=== PATIENT | male | born 1950 | race Caucasian/White ===

== ENCOUNTER 2017-08-24 09:02 | Outpatient (CLI) | payer OTHER ==
[~2017-08-24 09:02] MED LIST: CIALIS2.5 MG PO; IBUPROFEN800 MG PO; NEURONTIN300 MG PO; PERCOCET 5/3251 TAB PO; POLY119PG PO; PROTONIX40 M1 PO
== END 2017-08-24 13:21 | disposition home or self-care (01) ==
LOC: RAD 09:02 → MRI 09:02
DX: M25.511 Pain in right shoulder (principal)
CPT/HCPCS: 73221

== ENCOUNTER 2018-07-25 13:20 | Outpatient (CLI) | payer OTHER | END 2018-07-25 15:48 | disposition home or self-care (01) | LOC: MRI 13:20 | DX: G25.0 Essential tremor (principal) | CPT/HCPCS: 70551 ==

== ENCOUNTER → 2020-04-16 | Outpatient (CLI) | payer OTHER | END | disposition home or self-care (01) | LOC: PPH VACUNA | PROVIDERS: ATTEND Emergency Medicine Pediatric Emergency Medicine | DX: Z23 Encounter for immunization (principal) ==

== ENCOUNTER 2021-02-12 10:16 | Outpatient (CLI) | payer OTHER | END 2021-02-16 15:48 | disposition home or self-care (01) | LOC: MRI 10:16 | DX: M25.511 Pain in right shoulder (principal) | CPT/HCPCS: 73221 ==

== ENCOUNTER 2023-09-21 11:08 | Outpatient (CLI) | payer OTHER | END 2023-09-21 12:00 | disposition home or self-care (01) | LOC: MRI 11:08 | DX: M51.86 Other intervertebral disc disorders, lumbar region (principal) | CPT/HCPCS: 72148 ==